=== PATIENT | male | born 1955 | race Caucasian/White ===

== ENCOUNTER 2019-12-11 08:42 | Emergency (ER) | payer BC, MEDICARE ==
[2019-12-11 08:55] VITALS: BP 138/94
--- NOTE | 2019-12-11 09:09 | UC ---
General HPI - HPI Summary HPI Summary: Patient noticed a tick bite on abdomen this morning Was out pulling weeds by his [place] yesterday around 4pm - took a shower yesterday and did not notice it then. No fever. Tried to get it out but unsuccessful - History of Current Complaint Chief Complaint: UCGeneralIllness Stated Complaint: TICK Time Seen by Provider: 12/11/19 08:57 Pain Intensity: 0 - Allergy/Home Medications Allergies/Adverse Reactions: Allergies Allergy/AdvReac Type Severity Reaction Status Date / Time No Known Allergies Allergy Verified 12/11/19 08:54 Home Medications: Home Medications Losartan Potassium 100 mg PO DAILY 07/23/15 [History Confirmed 12/11/19] Timoptic 1 drop BOTH EYES BID 07/23/15 [History Confirmed 12/11/19] DOXYcycline CAP(*) [DOXYcycline 100MG CAP(*)] 200 mg PO ONCE #2 cap 12/11/19 [Rx ] Rosuvastatin (NF) [Crestor (NF)] 5 mg PO 1700 12/11/19 [History Confirmed ] PMH/Surg Hx/FS Hx/Imm Hx Previously Healthy: Yes - Surgical History Surgical History: Yes Surgery Procedure, Year, and Place: APPENDECTOMY - 1976. INGUINAL HERNIA - 25 yrs ago. WISDOM TEETH - 30 yrs ago - Social History Alcohol Use: Daily Substance Use Type: None Smoking Status (MU): Never Smoked Tobacco Review of Systems All Other Systems Reviewed And Are Negative: Yes Physical Exam Triage Information Reviewed: Yes Appearance: Well-Appearing Vital Signs: Initial Vital Signs Temp 97.9 F 12/11/19 08:51 Pulse 71 12/11/19 08:51 Resp 16 12/11/19 08:51 BP 138/94 12/11/19 08:51 Pulse Ox 99 12/11/19 08:51 Vital Signs Reviewed: Yes Eyes: Positive: Conjunctiva Clear Skin Exam: Other - nymph tick engorged with surrounding redness Nymph removed partially engorged with tick twister Course/Dx - Course Course Of Treatment: This is a 64 yr old with partially engorged tick Plan Monitor for any bull's eye/Lyme rash Monitor for fever IF either of the above, follow up with PCP or return to urgent care One dose of doxycycline - take as prescribed to potentially limit the possible transmission of lyme - Diagnoses Provider Diagnosis: Tick bite of abdomen Discharge ED - Sign-Out/Discharge Documenting (check all that apply): Patient Departure All imaging exams completed and their final reports reviewed: No Studies - Discharge Plan Condition: Fair Disposition: HOME Patient Education Materials: Lyme Disease (ED), Tick Bite (ED) Referrals: [facility] [place] [facility] REFERRAL [Outside] Additional Instructions: Monitor for any bull's eye/Lyme rash Monitor for fever IF either of the above, follow up with PCP or return to urgent care One dose of doxycycline - take as prescribed to potentially limit the possible transmission of lyme - Billing Disposition and Condition Condition: FAIR Disposition: Home
== END 2019-12-11 09:16 | disposition home or self-care (01) ==
LOC: UCCORT 08:42
DX: S30.861A Insect bite (nonvenomous) of abdominal wall, initial encounter (principal); W57.XXXA Bitten or stung by nonvenomous insect and other nonvenomous arthropods, initial encounter; Y93.H2 Activity, gardening and landscaping; Y92.008 Other place in unspecified non-institutional (private) residence as the place of occurrence of the external cause
CPT/HCPCS: 99211; G0463